=== PATIENT | female | born 1945 | race Caucasian/White ===

== ENCOUNTER → 2016-05-16 | Outpatient (CLI) | payer OTHER ==
[~2016-05-16] MED LIST: ATEN50TA8 PO; CALC-220 PO; CHOLTAB3 PO; CLX20 PO; HYD50 PO; LORA-741 PO; METF1TAB53 PO; OMEG10007 PO; ROSU5TAB PO; ZOLP10TA6 PO
--- NOTE | 2016-05-16 16:26 | MAMMOGRAPHY REPORT ---
BILATERAL DIGITAL SCREENING MAMMOGRAM TOMOSYNTHESIS WITH CAD: 05/16/2016 CLINICAL HISTORY: Asymptomatic. Personal history of breast cancer. TECHNIQUE: Breast tomosynthesis in addition to standard 2D mammography was performed. Current study was also evaluated with a Computer Aided Detection (CAD) system. COMPARISON: Comparison is made to exams dated: 05/13/2015 mammogram, 11/10/2014 mammogram, 05/12/2014 m ammogram, 10/08/2013 stereotactic biopsy, 09/26/2013 mammogram, and 03/28/2013 mammogram - [facility]. BREAST COMPOSITION: The tissue of both breasts is almost entirely fatty. FINDINGS: No suspicious masses, calcifications, or areas of architectural distortion are noted in e ither breast. There has been no significant interval change compared to prior exams. There are stab le postsurgical changes in the left breast from prior lumpectomy. A biopsy marker clip is again not ed at the lumpectomy bed. Bilateral benign-appearing calcifications are not significantly changed. Asymmetry in the right superior breast on the MLO view is stable compared to prior exams. IMPRESSION: ACR BI-RADS CATEGORY 2: BENIGN There is no mammographic evidence of malignancy. A 1 year screening mammogram is recommended. The p atient will receive written notification of the results. Approximately 10% of breast cancers are not detected with mammography. A negative mammographic repor t should not delay biopsy if a clinically suggestive mass is present. Madonna Alfonso M.D. /:05/16/2016 15:05:10 Menagerie Caretaker: Brittny Blandon, [facility] letter sent: Normal 1/2 BI-RADS Code: ACR BI-RADS Category 2: Benign
== END | disposition home or self-care (01) ==
LOC: C.MAMM 13:01
PROVIDERS: ATTEND Radiology Radiation Oncology
DX: Z12.31 Encounter for screening mammogram for malignant neoplasm of breast (principal); Z85.3 Personal history of malignant neoplasm of breast

== ENCOUNTER → 2016-09-01 | Outpatient (CLI) | payer OTHER ==
[2015-09-08 14:04] VITALS: BP 132/74; PULSE 63
[2016-09-01 13:11] VITALS: BP 122/66; PULSE 59; TEMP 37; O2SAT 97
--- NOTE | 2016-09-01 16:48 | Radiation Oncology Follow-Up ---
Radiation Oncology Follow-Up Date of Visit Sep 01, 2016. 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 Stage pTisNX Estrogen receptor negative and progesterone receptor negative Status post completion of radiation therapy 02/07/2014 received 6020 cGy Last Edited By: Yaneth Acosta on Sep 12, 2014 10:47 History of Present Illness Ms. Mckeon is a 71-year-old female who has been followed with annual screening mammograms. On 03/20/2013 patient underwent bilateral screening mammogram. This showed abnormality in the left breast and a unilateral digital diagnostic mammogram was recommended. This was performed on 03/28/2013. This showed new cluster of various size grouped dystrophic calcifications in the left breast central to the nipple middle depth. Recommendations at that time were for a stereotactic biopsy versus an option of six-month follow-up. The patient chose to repeat the study in 6 months. Therefore on 09/26/2013 she underwent a unilateral left digital diagnostic mammogram. This showed the previously observed cluster of indeterminate microcalcifications in the left posterior breast at the 4 o'clock position was again appreciated. They appeared slightly posterior to the previous site, there was felt to be possibly a few more faint microcalcifications along the superior and lateral margin of the cluster of calcifications. The tissue was still determined to be indeterminant but a stereotactic guided biopsy was recommended. On 10/08/2013 a security system analyst view of the left breast was performed again demonstrating the clustered pleomorphic microcalcifications that were amenable to a stereotactic guided biopsy. The abnormality was located in the left breast at the 6:00 posterior depth position. A T-shaped metallic biopsy marker was placed in the biopsy cavity. 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 Immunohistochemical stains were performed and were negative staining for ER and AR each 0%. Case: [id number]. Patient was seen by Dr. Mercy Harvey who discussed treatment options with the patient. The patient proceeded with breast conserving therapy consisting of a lumpectomy. This was performed on 11/20/2013. The lesion measured 1.2 cm in greatest dimension and was present in 4 out of 19 slides. Comedonecrosis was noted. Margins were examined and all margins were negative including the lumpectomy specimen margins and the additionally submitted new margins. In the lumpectomy specimen the ductal carcinoma in situ approached within 0.2 cm of the deep/posterior margin, 0.4 cm from the anterior margin and was greater than 0.5 cm from all other margins. These were non-final margins. The additional margins taken were negative as noted above. The final AJCC pathologic stage is pTis. Case: [id number]. Dr. Harvey reviewed the final pathology with the patient. With the ER/AR- negative there is no role for adjuvant hormonal therapy. Interim History She's been doing well over this past year. She denies any changes to her breast. She has noted no masses or tenderness and no change of the axilla. She 's had no swelling of her arm. She is up-to-date on mammography. She had a mammogram 05/16/2016. There was no mammographic evidence of malignancy. A one- year screening mammogram was recommended. BI-RADS Category 2. She has been having issues with her left ankle. She saw her primary care physician and did have an x-ray. She then saw a sales development director. She was told she has a "chronic sprain". She is currently undergoing physical therapy. She gives a pain level of 1.5. She does not require any [id number]-uen-kcevxeb medications. Allergies Uncoded Allergies: NKA (Allergy, Unknown, 10/15/02) steri strips (Allergy, Unknown, skin blisters, 12/12/13) Home Medications Scheduled Atenolol (Tenormin), 50 MG PO DAILY Calcium Carbonate-Vitamin D (Caltrate 600+D), 1 TAB PO DAILY Citalopram (Citalopram Hydrobromide), 1 TAB PO DAILY Ergocalciferol (Vitamin D), 400 INTER.UNIT PO DAILY Fish Oil ([place]-3), 1 CAP PO DAILY Hydrochlorothiazide (Hydrochlorothiazide), 1 TAB PO DAILY Metformin Hcl (Glucophage Ext Rel), 1 TAB PO DAILY Rosuvastatin Calcium (Crestor), 5 MG PO DAILY Zolpidem Tartrate (Zolpidem Tartrate), 1 TAB PO HS Review of Systems Gastrointestinal: Symptoms: WNL GI Comments: Metformin gives patiet "gas" Oral: Symptoms: No Problems Respiratory: Symptoms: WNL Urinary: Symptoms: WNL Skin: Symptoms: No Problems Other Skin Symptoms: Dryness while recieving radiation-since resolved. Breast: Right Upper Arm Measurement: 35.1 Right Mid Arm Measurement: 27.2 Right Wrist Measurement: 17.0 Left Upper Arm Measurement: 34.4 Left Mid Arm Measurement: 26.8 Left Wrist Measurement: 16.7 Arm Dominence: Right Patient Cosmetic Evaluation: Good Staff Cosmetic Evalaluation: Good Physical Exam Vital Signs Date Time Temp Pulse Resp B/P (MAP) Pulse Ox O2 Delivery O2 Flow Rate FiO2 09/01/16 13:11 37.0 59 16 122/66 97 Pain: Pain Location: None Patient Pain Scale: 0 - 10 Initial Pain Intensity: 0.0 Fatigue: None General Appearance: no apparent distress Eyes: normal inspection, EOMI ENT: normal ENT inspection, hearing grossly normal Neck: no adenopathy Respiratory/Chest: lungs clear, no respiratory distress, no accessory muscle use Breast: Breast examination reveals well-healed incision of the left breast. There are no masses or tenderness and no axillary adenopathy minimal telangiectasia. She has no skin retractions or nipple changes. Using the [place] score cosmesis she has a good outcome. The right breast showed no masses or tenderness and no axillary adenopathy. Cardiovascular: regular rate, rhythm, no gallop, no murmur Extremities: no pedal edema, no calf tenderness (there is slight swelling of the left ankle at the lateral malleolus. There is mild tenderness to palpation above the lateral malleolus.), + pertinent finding Skin: warm/dry Additional Studies Patient: DEBRA MCKEON [facility] Rec: [id number] Address1: [address] [place] [address] Address2: [facility] ID: [id number] Date: 1945 Sex: F Ref Phy: Elvira Preston M.D. Att Phy: Yaneth Acosta PA-C Raya Phy: Pauline Pena D.O. Inter Phy: Madonna Alfonso MD [facility] Zip: [place] [address] SC: [email or web address] Report #: [id number] Grinder Brake Lining: ALEJANDRO Diagnosis: ASYMPTOMATIC; HX OF BREAST CA Service Date: 05/16/16 MNE: [id number] Ordering Dr: Yaneth Acosta PA-C CC: Yaneth Acosta PA-C CONF: DICTATED BY: Madonna Alfonso MD MAMMOGRAPHY REPORT BILATERAL DIGITAL SCREENING MAMMOGRAM TOMOSYNTHESIS WITH CAD: 05/16/2016 CLINICAL HISTORY: Asymptomatic. Personal history of breast cancer. TECHNIQUE: Breast tomosynthesis in addition to standard 2D mammography was performed. Current study was also evaluated with a Computer Aided Detection (CAD ) system. COMPARISON: Comparison is made to exams dated: 05/13/2015 mammogram, 11/10/2014 mammogram, 05/12/2014 mammogram, 10/08/2013 stereotactic biopsy, 09/26/2013 mammogram , and 03/28/2013 mammogram - [facility]. BREAST COMPOSITION: The tissue of both breasts is almost entirely fatty. FINDINGS: No suspicious masses, calcifications, or areas of architectural distortion are noted in either breast. There has been no significant interval change compared to prior exams. There are stable postsurgical changes in the left breast from prior lumpectomy. A biopsy marker clip is again noted at the lumpectomy bed. Bilateral benign-appearing calcifications are not significantly changed. Asymmetry in the right superior breast on the MLO view is stable compared to prior exams. IMPRESSION: ACR BI-RADS CATEGORY 2: BENIGN There is no mammographic evidence of malignancy. A 1 year screening mammogram is recommended. The patient will receive written notification of the results. Approximately 10% of breast cancers are not detected with mammography. A negative mammographic report should not delay biopsy if a clinically suggestive mass is present. Madonna Alfonso M.D. ah/:05/16/2016 15:05:10 Release Engineer: Brittny Blandon, [facility] letter sent: Normal 1/2 BI-RADS Code: ACR BI-RADS Category 2: Benign Dictated by: Madonna Alfonso MD Signed by: Madonna Alfonso MD Assessment & Plan Plan: Continue with scheduled and no mammography. Continue regular follow-up with her primary care physician. She is continuing follow up with the sales development director and completing her physical therapy for her ankle. We asked her to return to our office in 1 year. She may call if she has any questions or concerns in the interim. Total Time In Follow-Up I spent 20 minutes PE to the patient and performing examination. I spent 15 minutes reviewing information and completing this note. Copy To Pauline Pena D.O. Problem Qualifiers (1) Carcinoma in situ of breast: Carcinoma in situ of breast type: intraductal Laterality: left Qualified Codes: D05.12 - Intraductal carcinoma in situ of left breast
== END | disposition home or self-care (01) ==
LOC: C.ONC 13:07
PROVIDERS: ATTEND Physician Assistant Medical
DX: Z08 Encounter for follow-up examination after completed treatment for malignant neoplasm (principal); Z92.3 Personal history of irradiation; Z85.3 Personal history of malignant neoplasm of breast

== ENCOUNTER → 2017-05-18 | Outpatient (CLI) | payer OTHER ==
[~2017-05-18] MED LIST changes: -LORA-741 PO
--- NOTE | 2017-05-19 14:58 | MAMMOGRAPHY REPORT ---
BILATERAL DIGITAL SCREENING MAMMOGRAM TOMOSYNTHESIS WITH CAD: 05/18/2017 CLINICAL HISTORY: Asymptomatic. Personal history of breast cancer. TECHNIQUE: Breast tomosynthesis in addition to standard 2D mammography was performed. Current study was also evaluated with a Computer Aided Detection (CAD) system. COMPARISON: Comparison is made to exams dated: 05/16/2016 mammogram, 05/13/2015 mammogram, 11/10/2014 m ammogram, 05/12/2014 mammogram, 10/08/2013 stereotactic biopsy, and 10/08/2013 mammogram - [facility]. BREAST COMPOSITION: The tissue of both breasts is almost entirely fatty. FINDINGS: No suspicious masses, calcifications, or areas of architectural distortion are noted in ei ther breast. There has been no significant interval change compared to prior exams. There are stable postsurgical changes in the left breast from prior lumpectomy. A biopsy marker clip is again noted at the lumpectomy bed. Bilateral benign-appearing calcifications are not significantly changed. Asy mmetry in the right superior breast on the MLO view is stable compared to prior exams. IMPRESSION: ACR BI-RADS CATEGORY 2: BENIGN There is no mammographic evidence of malignancy. A 1 year screening mammogram is recommended. The pa tient will receive written notification of the results. Approximately 10% of breast cancers are not detected with mammography. A negative mammographic report should not delay biopsy if a clinically suggestive mass is present. Madonna Alfonso M.D. /:05/18/2017 16:35:45 Highway Safety Engineer: Fabiola TORRES,R, M, [facility] letter sent: Normal 1/2 BI-RADS Code: ACR BI-RADS Category 2: Benign
== END | disposition home or self-care (01) ==
LOC: C.MAMM 09:03
PROVIDERS: ATTEND Physician Assistant Medical
DX: Z12.31 Encounter for screening mammogram for malignant neoplasm of breast (principal); Z85.3 Personal history of malignant neoplasm of breast